=== PATIENT | female | born 1990 | race Caucasian/White ===

== ENCOUNTER 2021-04-25 20:24 | Inpatient (IN) ==
[2021-04-25 21:45] LABS: Basophils % 0.1 %; Eosinophils % 0.6 %; Hematocrit 39.6 % (35.3-44.9); Hemoglobin 12.9 g/dL (11.5-15.4); Immature Granulocytes % 0.4 % (0-4); Lymphocytes # 1.8 K/mcL (0.6-4.6); Lymphocytes % 25.3 %; Mean Corpuscular HGB Conc 32.6 g/dL (31.6-35.5); Mean Corpuscular Hemoglobin 27.5 pg (28.0-33.3); Mean Corpuscular Volume 84.4 fL (83.0-100.0); Mean Platelet Volume 12.8 fL (9.4-12.4); Monocytes # 0.3 K/mcL (0.0-1.3); Monocytes % 4.6 %; Neutrophils # 4.9 K/mcL (1.6-8.9); Platelet Count 158 K/mcL (140-400); Red Blood Count 4.69 M/mcL (3.82-4.97); Red Cell Distribution Width 12.8 % (11.5-14.5); White Blood Count 7.2 K/mcL (4.3-11.1)
[2021-04-25 21:57] LABS: Bilirubin,Urine Negative (Negative); Blood,Urine Negative (Negative); Clarity,Urine Turbid (Clear); Color,Urine Light-Yellow (Yellow); Glucose,Urine (UA) Normal (Normal); Hyaline Casts,Urine Few per lpf (None Seen); Ketones,Urine Negative (Negative); Leukocyte Esterase,Urine Negative (Negative); Mucus,Urine Few per lpf (None-Few); Nitrite,Urine Negative (Negative); PH,Urine 5.5 pH Units (5.0-8.0); Protein,Urine Negative (Neg-Trace); RBC,Urine 0-3 per hpf (0-3); Specific Gravity,Urine 1.009 (1.010-1.025); Squamous Epithelial Cell,Urine Moderate per hpf (None-Few); Urobilinogen,Urine Normal (Normal)
[2021-04-25 22:04] LABS: Amphetamine Screen,Urine Negative ng/mL (Cutoff=1000); Barbiturate Screen,Urine Negative ng/mL (Cutoff=200); Benzodiazepines Screen,Urine Negative ng/mL (Cutoff=200); Cannabinoid Screen,Urine Negative ng/mL (Cutoff = 50); Cocaine Screen,Urine Negative ng/mL (Cutoff= 300); Opiate Screen,Urine Negative ng/mL (Cutoff=300); Phencyclidine Screen,Urine Negative ng/mL (Cutoff=25)
[2021-04-25 22:52] LABS: Acetaminophen < 10 mcg/mL (10-20); Alanine Aminotransferase 17 Units/L (7-52); Albumin/Globulin Ratio 1.5 (1.1-2.2); Alkaline Phosphatase 42 Units/L (34-104); Aspartate Amino Transferase 16 Units/L (13-39); BUN/Creatinine Ratio 13 (6-26); Bilirubin,Direct 0.1 mg/dL (0.0-0.2); Bilirubin,Indirect 0.3 mg/dL (0.0-1.0); Bilirubin,Total 0.4 mg/dL (0.3-1.0); Blood Urea Nitrogen 10 mg/dL (6-20); Carbon Dioxide 23 mEq/L (23-29); Chloride 108 mEq/L (98-107); Ethanol < 10 mg/dL (Less than 10); Globulin 2.6 g/dL (2.4-3.5); Glucose 93 mg/dL (70-105); Osmolality,Calculated 285 (280-300); Salicylate < 2.5 mg/dL (15.0-30.0); Sodium 138 mEq/L (136-145); Total Protein 6.6 g/dL (6.4-8.9); eGFR For African Americans > 60 (> 60); eGFR For Non-African Americans > 60 (> 60)
[2021-04-26 02:09] LABS: Influenza A PCR Negative (Negative); Influenza B PCR Negative (Negative); Resp. Syncytial Virus PCR Negative (Negative)
[2021-04-26 02:10] LABS: SARS-CoV-2 by PCR (In House) Negative (Negative)
[2021-04-27] MEDS ORDERED: Nicotine 2 MG GUM BC PRN (09:26)
[2021-04-27] MEDS ORDERED: *HR* LORazepam 1 MG TABLET PO PRN (09:26)
[2021-04-27] MEDS ORDERED: hydrOXYzine pamoate 25 MG CAPSULE PO PRN (09:26)
[2021-04-27] MEDS ORDERED: haloperidoL 5 MG TABLET PO PRN (09:26)
[2021-04-27] MEDS ORDERED: MOM Conc 10 ML UD.LIQ PO PRN (09:26)
[2021-04-27] MEDS ORDERED: Haloperidol Lactate 5 MG/ML VIAL IM PRN (09:26)
[2021-04-27] MEDS ORDERED: Acetaminophen 325 MG TABLET PO PRN (09:26)
[2021-04-27] MEDS ORDERED: Mag Hydrox/Al Hydrox/Simeth 30 ML UDC PO PRN (09:26)
[2021-04-27] MEDS ORDERED: *HR* LORazepam 2 MG/ML VIAL IM PRN (09:26)
[2021-04-27] MEDS ORDERED: traZODone 50 MG TABLET PO PRN (09:26)
[2021-04-27] MEDS ORDERED: Ibuprofen 600 MG TABLET PO PRN (11:13)
[2021-04-27] MEDS: QUEtiapine Fumarate 25 MG TABLET PO PRN (21:04)
[2021-04-27] MEDS: risperiDONE 1 MG TABLET PO SCH (21:04)
[2021-04-28] MEDS: risperiDONE 1 MG TABLET PO SCH (20:50)
[2021-04-28] MEDS: QUEtiapine Fumarate 25 MG TABLET PO PRN (20:50)
[2021-04-29 08:21] VITALS: BP 93/61; PULSE 67; TEMP 97.8; O2SAT 97
== END 2021-04-29 15:05 | disposition home or self-care (01) | DRG 751 ==
LOC: EMEROOARM 20:24 → 1ANU 04-27 09:30
PROVIDERS: ADMIT Psychiatry & Neurology Psychiatry; ATTEND Psychiatry & Neurology Psychiatry